=== PATIENT | male | born 1985 | race Caucasian/White ===

== ENCOUNTER 2018-06-20 09:48 | Emergency (ER) | payer BC ==
[2018-06-20] MEDS ORDERED: Adacel (T-DAP) 0.5 ML SYRINGE ONE (10:08)
[2018-06-20] MEDS ORDERED: HYDROcodone/Acetaminophen 10/325 mg Tablet ONE (10:08)
--- NOTE | 2018-06-20 10:29 | RAD ---
THREE VIEWS OF THE LEFT HAND: COMPARISON: None. HISTORY: Left hand injury by nail into the thumb. FINDINGS: Three views of the left thumb show a radiopaque foreign body in the thumb which represents the nail. This does not obviously pass through the bony cortex and may course along the volar aspect of the adalid ne. No fracture is seen. IMPRESSION: Radiopaque foreign body in the thumb soft tissues. POS: [facility]
== END 2018-06-20 10:49 | disposition home or self-care (01) ==
LOC: ERS 09:48
DX: S60.352A Superficial foreign body of left thumb, initial encounter (principal); I10 Essential (primary) hypertension; W45.8XXA Other foreign body or object entering through skin, initial encounter
CPT/HCPCS: 90471; 90715